=== PATIENT | male | born 1995 | race Caucasian/White ===

== ENCOUNTER 2016-10-03 18:06 | Emergency (ER) | payer SELFPAY ==
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
[2016-10-03 20:26] VITALS: BP 144/80
== END 2016-10-03 20:30 | disposition home or self-care (01) ==
LOC: DL.ED 18:06
DX: K59.01 Slow transit constipation (principal); K21.9 Gastro-esophageal reflux disease without esophagitis; F17.210 Nicotine dependence, cigarettes, uncomplicated; Z91.030 Bee allergy status
CPT/HCPCS: 74000; 99282; 99283

== ENCOUNTER 2017-01-05 15:54 | Emergency (ER) | payer SELFPAY ==
[2017-01-05 16:08] VITALS: BP 132/77
[2017-01-05] MEDS ORDERED: Silver Sulfadiazine 1% Crm 50 GM Tube TOP ONE (16:28)
[2017-01-05] MEDS ORDERED: Sodium Chloride 0.9% 1,000 ML IV ONE (16:28)
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
[2017-01-05 16:52] LABS: O2 DELIVERY DEVICE ROOM AIR
[2017-01-05 16:54] LABS: BASE EXCESS ARTERIAL 2 mmol/L ((-2)-(+3)); BICARBONATE,ARTERIAL 27.1 mmol/L (22-26); O2 SATURATION ARTERIAL 50 % (95-100); PCO2 ARTERIAL 45 mmHg (35-45)
[2017-01-05 16:56] LABS: O2 FLOW RATE 0; PO2 ARTERIAL 34 mmHg (70-100)
[2017-01-05 17:15] LABS: CHLORIDE,CL 106 mmol/L (101-111); SODIUM,NA 142 mmol/L (135-145)
== END 2017-01-05 18:47 | disposition home or self-care (01) ==
LOC: DL.ED 15:54
DX: T25.122A Burn of first degree of left foot, initial encounter (principal); T25.121A Burn of first degree of right foot, initial encounter; T24.101A Burn of first degree of unspecified site of right lower limb, except ankle and foot, initial encounter; T31.11 Burns involving 10-19% of body surface with 10-19% third degree burns; K21.9 Gastro-esophageal reflux disease without esophagitis; F17.210 Nicotine dependence, cigarettes, uncomplicated; Z91.030 Bee allergy status; X08.8XXA Exposure to other specified smoke, fire and flames, initial encounter
CPT/HCPCS: 36415; 36600; 71010; 80048; 82375; 82803; 83605; 85025; 99282; 99283; A9270

== ENCOUNTER 2017-12-19 18:20 | Emergency (ER) | payer SELFPAY ==
[2017-12-19] MEDS ORDERED: Amoxicillin 500 MG Cap PO ONE (19:51)
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
[2017-12-19 20:22] VITALS: BP 112/55
== END 2017-12-19 20:11 | disposition home or self-care (01) ==
LOC: DL.ED 18:20
DX: H66.43 Suppurative otitis media, unspecified, bilateral (principal); J03.90 Acute tonsillitis, unspecified; F17.210 Nicotine dependence, cigarettes, uncomplicated; Z91.030 Bee allergy status
CPT/HCPCS: 87081; 87430; 99283; A9270

== ENCOUNTER 2019-03-27 12:58 | Emergency (ER) | payer SELFPAY | END 2019-03-27 14:10 | disposition left against medical advice (07) | LOC: DL.ED 12:58 | DX: Z53.21 Procedure and treatment not carried out due to patient leaving prior to being seen by health care provider (principal) ==